=== PATIENT | male | born 1980 | race Two or more races ===

== ENCOUNTER 2018-11-20 11:02 | Emergency (ER) | payer OTHER ==
[2018-11-20] MEDS ORDERED: CLINDAMYCIN 600MG/D5W 600 MG/50 ML BAG IV ONE (11:47)
[2018-11-20 11:57] LABS: Absolute Lymphocytes (CBC) 1.4 K/uL (0.7-4.9); Absolute Monocytes 0.5 K/uL (0.1-1.3); Absolute Neutrophil 5.9 K/uL (1.8-8.0); Basophils % 0.4 % (0-1.3); Eosinophils % 2.5 % (0-4.4); Hematocrit 46.4 % (39.6-49.0); Lymphocytes % 17.1 % (15.3-44.8); MPV 7.8 fL (7.6-11.3); Monocytes % 6.7 % (3.3-12.3); RBC Red Blood Cell Count 5.41 M/uL (4.33-5.43)
[2018-11-20 12:39] LABS: BUN Blood Urea Nitrogen 15 mg/dL (7-18); Bicarbonate 27 mmol/L (21-32); Glucose Level 93 mg/dL (74-106); Sodium Level 142 mmol/L (136-145)
--- NOTE | 2018-11-20 13:01 | EDPHYS ---
Physician Documentation [facility] Name: Margarito De Leon Age: 38 yrs Sex: Male : 1980 Arrival Date: 11/20/2018 Time: 11:09 Bed 10 Private MD: ED Physician Bertin Lama HPI: 11/20 13:18 This 38 yrs old Male presents to ER via Ambulatory with complaints of Insect Bite. kb 13:19 The patient presents with cellulitis of the left forearm. Description: erythematous, kb hot, swollen. Onset: The symptoms/episode began/occurred yesterday. Possible cause(s): insect sting. Associated signs and symptoms: Pertinent positives: erythema, swelling, Pertinent negatives: discharge, drainage, foreign body sensation, fever, headache, nausea, shortness of breath, vomiting. Modifying factors: the symptoms are alleviated by nothing, the symptoms are aggravated by pressure. Severity of symptoms: At their worst the symptoms were moderate, in the emergency department the symptoms are unchanged. The patient has not experienced similar symptoms in the past. The patient has not recently seen a physician. Pt states he was working in the yard and putting out soil yesterday and something bit him. Woke up this morning with redness, swelling, and warmth for forearm. Historical: - Allergies: 11:13 No Known Allergies; hj - Home Meds: 11:13 Zyrtec Oral [Active]; hj - PMHx: 11:13 None; hj - PSHx: 11:13 None; hj - Immunization history:: Adult Immunizations up to date. - Social history:: Smoking status: Patient/guardian denies using tobacco, Patient/guardian denies using alcohol. - Ebola Screening: : Patient negative for fever greater than or equal to 101.5 degrees Fahrenheit, and additional compatible Ebola Virus Disease symptoms Patient denies exposure to infectious person Patient denies travel to an Ebola-affected area in the 21 days before illness onset. ROS: 13:17 Constitutional: Negative for fever, chills, and weight loss, Cardiovascular: Negative kb for chest pain, palpitations, and edema, Respiratory: Negative for shortness of breath, cough, wheezing, and pleuritic chest pain, Abdomen/GI: Negative for abdominal pain, nausea, vomiting, diarrhea, and constipation, MS/Extremity: Negative for injury and deformity, Neuro: Negative for headache, weakness, numbness, tingling, and seizure. 13:17 Skin: Positive for cellulitis, erythema, swelling, of the left forearm. Exam: 13:18 Constitutional: This is a well developed, well nourished patient who is awake, alert, kb and in no acute distress. Head/Face: Normocephalic, atraumatic. ENT: Nares patent. No nasal discharge, no septal abnormalities noted. Tympanic membranes are normal and external auditory canals are clear. Oropharynx with no redness, swelling, or masses, exudates, or evidence of obstruction, uvula midline. Mucous membranes moist. Neck: Trachea midline, no thyromegaly or masses palpated, and no cervical lymphadenopathy. Supple, full range of motion without nuchal rigidity, or vertebral point tenderness. No Meningismus. Chest/axilla: Normal chest wall appearance and motion. Nontender with no deformity. No lesions are appreciated. Cardiovascular: Regular rate and rhythm with a normal S1 and S2. No gallops, murmurs, or rubs. Normal PMI, no JVD. No pulse deficits. Respiratory: Lungs have equal breath sounds bilaterally, clear to auscultation and percussion. No rales, rhonchi or wheezes noted. No increased work of breathing, no retractions or nasal flaring. Abdomen/GI: Soft, non-tender, with normal bowel sounds. No distension or tympany. No guarding or rebound. No evidence of tenderness throughout. MS/ Extremity: Pulses equal, no cyanosis. Neurovascular intact. Full, normal range of motion. Neuro: Awake and alert, GCS 15, oriented to person, place, time, and situation. Cranial nerves II-XII grossly intact. Motor strength 5/5 in all extremities. Sensory grossly intact. Cerebellar exam normal. Normal gait. 13:18 Skin: cellulitis, that is moderate, on the left forearm. Vital Signs: 11:13 BP 136 / 95; Pulse 84; Resp 18; Temp 97.8(O); Pulse Ox 100% on R/A; Weight 68.04 kg; hj Height 5 ft. 7 in. (170.18 cm); Pain 3/10; 11:13 Body Mass Index 23.49 (68.04 kg, 170.18 cm) MDM: 11:16 Patient medically screened. kb 13:17 Data reviewed: vital signs, nurses notes. Data interpreted: Pulse oximetry: on room air kb is 100 %. Interpretation: normal. Counseling: I had a detailed discussion with the patient and/or guardian regarding: the historical points, exam findings, and any diagnostic results supporting the discharge/admit diagnosis, lab results, the need for outpatient follow up, a family practitioner, to return to the emergency department if symptoms worsen or persist or if there are any questions or concerns that arise at home. 11/20 11:21 Order name: CBC with Diff; Complete Time: 12:01 kb 11/20 11:21 Order name: Basic Metabolic Panel; Complete Time: 12:57 kb 11/20 11:21 Order name: IV Start; Complete Time: 11:51 kb 11/20 11: Order name: Blood Culture Adult (2) kb Administered Medications: 11:56 Drug: Clindamycin 600 mg Route: IVPB; Infused Over: 30 mins; Site: right antecubital; iw 13:00 Follow up: IV Status: Completed infusion hj Disposition: 17:57 Co-signature as Attending Physician, Bertin Lama MD Available for consultation at ps1 all times. . Disposition: 11/20/18 13:00 Discharged to Home. Impression: Cellulitis of left upper limb. - Condition is Stable. - Discharge Instructions: Cellulitis, Adult, [id number]. - Prescriptions for Clindamycin HCl 300 mg Oral Capsule - take 1 capsule by ORAL route every 6 hours for 10 days; 40 capsule. Doxycycline Hyclate 100 mg Oral Tablet - take 1 tablet by ORAL route once daily; 10 tablet. - Medication Reconciliation Form, Thank You Letter, Antibiotic Education, Prescription Opioid Use form. - Follow up: Emergency Department; When: As needed; Reason: Worsening of condition. Follow up: Private Physician; When: 2 - 3 days; Reason: Recheck today's complaints, Continuance of care, Re-evaluation by your physician. Signatures: Dispatcher [employer] Dionne Sandhu FNP-C FNP-Ckb Williams, Irene RN Raúl Owens RN Bertin Becker MD MD ps1 Corrections: (The following items were deleted from the chart) 13:14 13:00 11/20/2018 13:00 Discharged to Home. Impression: Cellulitis of left upper limb. hj Condition is Stable. Forms are Medication Reconciliation Form, Thank You Letter, Antibiotic Education, Prescription Opioid Use. Follow up: Emergency Department; When: As needed; Reason: Worsening of condition. Follow up: Private Physician; When: 2 - 3 days; Reason: Recheck today's complaints, Continuance of care, Re-evaluation by your physician. kb
--- NOTE | 2018-11-20 13:01 | ER ---
Nurse's Notes [facility] Name: Margarito De Leon Age: 38 yrs Sex: Male : 1980 Arrival Date: 11/20/2018 Time: 11:09 Bed 10 Private MD: Diagnosis: Cellulitis of left upper limb Presentation: 11/20 11:09 Presenting complaint: Patient states: i think i was bitten by an insect yesterday, the hj bite is on L lower arm and its moving up to my L upper arm and its warm to touched;, took ibuprofen yesterday; pain is 3/10;. Transition of care: patient was not received from another setting of care. Onset of symptoms was November 20, 2018. Risk Assessment: Do you want to hurt yourself or someone else? Patient reports no desire to harm self or others. Initial Sepsis Screen: Does the patient meet any 2 criteria? Yes Does the patient have a suspected source of infection? Yes: Skin breakdown/wound. Care prior to arrival: None. 11:09 Method Of Arrival: Ambulatory 11:09 Acuity: KELSIE 3 hj Triage Assessment: 11:13 General: Appears in no apparent distress. uncomfortable, Behavior is calm, cooperative, hj appropriate for age. Pain: Complains of pain in left arm Pain currently is 3 out of 10 on a pain scale. Historical: - Allergies: 11:13 No Known Allergies; hj - Home Meds: 11:13 Zyrtec Oral [Active]; hj - PMHx: 11:13 None; hj - PSHx: 11:13 None; hj - Immunization history:: Adult Immunizations up to date. - Social history:: Smoking status: Patient/guardian denies using tobacco, Patient/guardian denies using alcohol. - Ebola Screening: : Patient negative for fever greater than or equal to 101.5 degrees Fahrenheit, and additional compatible Ebola Virus Disease symptoms Patient denies exposure to infectious person Patient denies travel to an Ebola-affected area in the 21 days before illness onset. Screenin:13 Abuse screen: Denies threats or abuse. Denies injuries from another. Nutritional hj screening: No deficits noted. Tuberculosis screening: No symptoms or risk factors identified. Fall Risk None identified. Assessment: 11:45 General: Appears in no apparent distress. comfortable, Behavior is calm, cooperative. iw General: Denies fever, fatigue, chills. Pain: Complains of pain in left arm. Neuro: Level of Consciousness is awake, alert, obeys commands, Oriented to person, place, time, situation, Moves all extremities. Full function. Cardiovascular: Patient's skin is warm and dry. Respiratory: Respiratory effort is even, unlabored. GI: No signs and/or symptoms were reported involving the gastrointestinal system. Derm: Skin is intact, redness and swelling noted to left wrist, circumferential, streaking noted up to left axillary area. Musculoskeletal: Range of motion: intact in all extremities. Vital Signs: 11:13 BP 136 / 95; Pulse 84; Resp 18; Temp 97.8(O); Pulse Ox 100% on R/A; Weight 68.04 kg; hj Height 5 ft. 7 in. (170.18 cm); Pain 3/10; 11:13 Body Mass Index 23.49 (68.04 kg, 170.18 cm) ED Course: 11:09 Patient arrived in ED. mr 11:12 Triage completed. hj 11:13 Arm band placed on right wrist. hj 11:13 Patient has correct armband on for positive identification. Bed in low position. Call light in reach. Side rails up X 1. 11:16 Dionne Mata FNP-C [facility]. kb 11:16 Bertin Lama MD is Attending Physician. kb 11:34 Davina Barboza, CARLOS is Primary Nurse. iw 11:45 No provider procedures requiring assistance completed. iw 11:51 Initial lab(s) drawn, by me, sent to lab. Inserted saline lock: 20 gauge in right iw antecubital area, using aseptic technique. Blood collected. 12:18 Lab(s) recollected, by me, sent to lab. iw 13:14 IV discontinued, intact, bleeding controlled, No redness/swelling at site. Pressure hj dressing applied. Administered Medications: 11:56 Drug: Clindamycin 600 mg Route: IVPB; Infused Over: 30 mins; Site: right antecubital; iw 13:00 Follow up: IV Status: Completed infusion hj Outcome: 13:00 Discharge ordered by . kb 13:14 Discharged to home ambulatory. hj 13:14 Condition: stable 13:14 Discharge instructions given to patient, Instructed on discharge instructions, follow up and referral plans. medication usage, Demonstrated understanding of instructions, follow-up care, medications, Prescriptions given X 2. 13:14 Patient left the ED. Signatures: Dionne Mata FNP-C FNP-Ckb Rivera, Mary mr Williams, Irene, CARLOS RN iw Raúl Goncalves RN RN Corrections: (The following items were deleted from the chart) 11:15 11:13 Pulse 84bpm; Resp 18bpm; Pulse Ox 100% RA; Temp 97.8F Oral; 68.04 kg; Height 5 hj ft. 7 in.; BMI: 23.4; Pain 3/10; hj 11:56 11:09 Acuity: KELSIE 4 hj
== END 2018-11-20 13:14 | disposition home or self-care (01) ==
LOC: ER 11:02
DX: L03.114 Cellulitis of left upper limb (principal)
CPT/HCPCS: 36415; 80048; 85025; 87040; 96365; 99284